=== PATIENT | male | born 1945 | race African-American/Black ===

== ENCOUNTER 2022-07-04 13:35 | Outpatient (CLI) | payer OTHER, BC | END 2022-07-04 13:36 | disposition home or self-care (01) | LOC: NAV LAB 13:35 | PROVIDERS: ATTEND Family Medicine | DX: E11.42 Type 2 diabetes mellitus with diabetic polyneuropathy (principal); E11.65 Type 2 diabetes mellitus with hyperglycemia; E11.40 Type 2 diabetes mellitus with diabetic neuropathy, unspecified | CPT/HCPCS: 36415; 83036 ==